=== PATIENT | female | born 1980 | race Asian ===

== ENCOUNTER 2017-11-05 00:29 | Inpatient (IN) | payer SELFPAY ==
[~2017-11-05] VITALS: Ht 162.6 cm; Wt 76.2 kg
[2017-11-05] MEDS ORDERED: PREN1SGL25 PO (02:51)
[2017-11-05] MEDS ORDERED: LACTATED RINGERS 1,000 ML IV SCH (02:51)
[2017-11-05] MEDS ORDERED: PROMETHAZINE 25 MG/ML VIAL IVP PRN (02:55)
[2017-11-05] MEDS ORDERED: METHYLERGONOVINE 0.2 MG/ML AMP IM PRN (02:55)
[2017-11-05] MEDS ORDERED: NALBUPHINE HYDROCHLORIDE 10 MG/ML VIAL IVP PRN (02:55)
[2017-11-05] MEDS ORDERED: CARBOPROST 250 MCG/ML AMP IM PRN (02:55)
[2017-11-05] MEDS ORDERED: OXYTOCIN 10 UNITS/ML VIAL IM SCH (02:55)
[2017-11-05 03:21] LABS: BASOPHILS # (AUTO) 0.2 K/uL (0.00-0.22); BASOPHILS % (AUTO) 1.8 % (0.0-2.0); EOSINOPHILS # (AUTO) 0.1 K/uL (0-0.4); EOSINOPHILS % (AUTO) 0.7 % (0.0-4.0); HEMATOCRIT 37.9 % (36-48); HEMOGLOBIN 12.3 g/dL (12.0-16.0); LYMPHOCYTES # (AUTO) 1.6 K/uL (2.5-16.5); LYMPHOCYTES % (AUTO) 16.8 % (20.5-51.1); MEAN CORPUSCULAR HEMOGLOBIN 30 pg (27-31); MEAN CORPUSCULAR HGB CONC 33 g/dL (33-37); MEAN CORPUSCULAR VOLUME 92.3 fL (80-94); MONOCYTES # (AUTO) 0.7 K/uL (0.8-1.0); MONOCYTES % (AUTO) 7.1 % (1.7-9.3); NEUTROPHILS % (AUTO) 73.6 % (42.2-75.2); PLATELET COUNT (AUTO) 241 K/uL (140-450); RED CELL DISTRIBUTION WIDTH 13.6 % (11.6-13.7); WHITE BLOOD COUNT (AUTO) 9.6 K/uL (4.8-10.8)
[2017-11-05 03:27] LABS: APPEARANCE,URINE CLEAR (CLEAR); BILIRUBIN,URINE NEGATIVE (NEGATIVE); BLOOD, URINE 2+ (NEGATIVE); COLOR,URINE YELLOW (YELLOW); LEUKOCYTE ESTERASE ,URINE NEGATIVE (NEGATIVE); NITRITE, URINE NEGATIVE (NEGATIVE); UGLUCOSE NEGATIVE (NEGATIVE)
[2017-11-05 03:49] LABS: RBC,URINE 0-5 (RARE) /HPF (0-5); WBC,URINE 0-5 (RARE) /HPF (0-5)
[2017-11-05 03:50] LABS: CALCIUM OXALATE CRYSTALS,UR 0-1 /HPF (None Seen)
[2017-11-05 03:58] LABS: ALBUMIN 2.5 g/dL (3.4-5.0); ANION GAP 16.6 (8-16); CARBON DIOXIDE 21.2 mmol/L (21-32); CREATININE 0.6 mg/dL (0.6-1.3); POTASSIUM 3.8 mmol/L (3.5-5.1); TOTAL BILIRUBIN 0.2 mg/dL (0.0-1.0)
[2017-11-05] MEDS ORDERED: MISOPROSTOL 25 MCG TAB ONE ×2 (05:21→09:45)
[2017-11-05] MEDS ORDERED: MISOPROSTOL 25 MCG TAB VG PRN (05:25)
[2017-11-05] MEDS ORDERED: OXYTOCIN 20 UNITS in LACTATED RINGERS 1,000 ML IV SCH (15:55)
[2017-11-05] MEDS ORDERED: BUPIVACAINE-MPF 0.5% 10 ML VIAL INJ ONE (16:49)
[2017-11-06] MEDS ORDERED: OXYTOCIN 10 UNITS/ML VIAL ONE (01:13)
[2017-11-06] MEDS ORDERED: OXYTOCIN 10 UNITS/ML VIAL IM PRN (02:40)
[2017-11-06] MEDS ORDERED: oxyCODONE/APAP 5/325 MG 1 TAB TAB PO PRN (02:40)
[2017-11-06] MEDS ORDERED: IBUPROFEN 800 MG TAB PO PRN (02:40)
[2017-11-06] MEDS ORDERED: HYDROcodone/APAP 5/325 MG 1 TAB TAB PO PRN (02:40)
[2017-11-06] MEDS ORDERED: MEASLES, MUMPS, AND RUBELLA 1 VIAL SQVAC PRN (02:40)
[2017-11-06] MEDS ORDERED: BENZOCAINE/MENTHOL 20%-0.5% 60 GM CAN TP PRN (02:40)
[2017-11-06] MEDS ORDERED: TEMAZEPAM 15 MG CAP PO PRN (02:40)
[2017-11-06] MEDS ORDERED: METHYLERGONOVINE 0.2 MG/ML AMP IM PRN (02:40)
[2017-11-06 10:26] LABS: RAPID PLASMA REAGIN NON-REACTIVE (Non Reactiv)
--- NOTE | 2017-11-06 11:07 | NUR ---
PATIENT HAS BEEN SCREENED AND CATEGORIZED LOW NUTRITION RISK. PATIENT WILL BE SEEN WITHIN 7 DAYS OF ADMISSION. 11/12/[address]
[2017-11-06] MEDS ORDERED: BISACODYL 10 MG SUPP RC SCH (12:46)
[2017-11-06] MEDS ORDERED: DOCUSATE SOD/SENNA 50/8.6 MG 1 TAB PO SCH (21:00)
[2017-11-07 06:51] LABS: HEMATOCRIT 36.5 % (36-48); HEMOGLOBIN 12.5 g/dL (12.0-16.0)
== END 2017-11-07 23:05 | disposition home or self-care (01) | DRG 775 ==
LOC: MFCC 00:29
PROVIDERS: ADMIT Obstetrics & Gynecology; ATTEND Obstetrics & Gynecology
PROC: 10E0XZZ Delivery of Products of Conception, External Approach (ICD-10-PCS; principal; 2017-11-05)
PROC: 00HU33Z Insertion of Infusion Device into Spinal Canal, Percutaneous Approach (ICD-10-PCS; 2017-11-05)
PROC: 3E0R3BZ Introduction of Anesthetic Agent into Spinal Canal, Percutaneous Approach (ICD-10-PCS; 2017-11-05)
PROC: 3E0234Z Introduction of Serum, Toxoid and Vaccine into Muscle, Percutaneous Approach (ICD-10-PCS; 2017-11-06)
DX: O80 Encounter for full-term uncomplicated delivery (principal); Z23 Encounter for immunization; Z37.0 Single live birth; Z3A.39 39 weeks gestation of pregnancy; Z87.891 Personal history of nicotine dependence
CPT/HCPCS: 36415; 51702; 59200; 80053; 81001; 85018; 85025; 86592; 86886; 86900; 86901; 90715; J2590; J3490; J7120